=== PATIENT | female | born 1990 | race Two or more races ===

== ENCOUNTER 2016-08-10 21:21 | Emergency (ER) | payer OTHER ==
[~2016-08-10] VITALS: Ht 162.6 cm; Wt 68.0 kg
[2016-08-10 21:36] VITALS: BP 130/70
== END 2016-08-10 22:18 | disposition home or self-care (01) ==
LOC: ER 21:27
DX: M25.561 Pain in right knee (principal); X58.XXXA Exposure to other specified factors, initial encounter; Y93.02 Activity, running; Y92.89 Other specified places as the place of occurrence of the external cause; Y99.8 Other external cause status
CPT/HCPCS: A4606; Z7610